=== PATIENT | female | born 1960 | race African-American/Black ===

== ENCOUNTER 2016-11-09 14:26 | Emergency (ER) | payer MEDICARE ==
[~2016-11-09] VITALS: Ht 157.5 cm; Wt 93.9 kg
[2016-11-09 14:38] VITALS: BP 145/67
[2016-11-09] MEDS ORDERED: HYDROMORPHONE 2 MG/ML VIAL. IM ONE (16:15)
[2016-11-09] MEDS ORDERED: MORP15TA PO (16:51)
[2016-11-09] MEDS ORDERED: ACET325T9 PO (16:51)
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
== END 2016-11-09 17:03 | disposition home or self-care (01) ==
LOC: ER 14:26
DX: M54.5 Low back pain (principal); E11.9 Type 2 diabetes mellitus without complications; V98.8XXA Other specified transport accidents, initial encounter; Y93.89 Activity, other specified; Y92.89 Other specified places as the place of occurrence of the external cause; Y99.8 Other external cause status
CPT/HCPCS: 72100; 96372; 99284; J1170

== ENCOUNTER 2020-04-20 00:26 | Emergency (ER) | payer MEDICARE, OTHER ==
[~2020-04-20] VITALS: Ht 157.5 cm; Wt 59.0 kg
[~2020-04-20 00:26] MED LIST: ACET325T9 PO; MORP15TA PO
[2020-04-20] MEDS ORDERED: AZIT250T PO (01:31)
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
[2020-04-20 01:45] VITALS: BP 176/77
== END 2020-04-20 01:55 | disposition home or self-care (01) ==
LOC: ER 00:26
DX: R05 Cough (principal); J00 Acute nasopharyngitis [common cold]; E11.9 Type 2 diabetes mellitus without complications; I10 Essential (primary) hypertension; Z87.891 Personal history of nicotine dependence
CPT/HCPCS: 99283

== ENCOUNTER 2020-06-23 02:09 | Emergency (ER) | payer MEDICARE ==
[~2020-06-23] VITALS: Ht 162.6 cm; Wt 80.0 kg
[~2020-06-23 02:09] MED LIST changes: +AZIT250T PO
--- NOTE | 2020-06-23 02:58 | PHYS DOC ---
Past Medical History Past Medical History: Diabetes-Type II, Hypertension (WENDY GONZALEZ DO) Past Surgical History: No Surgical History (WENDY GONZALEZ DO) Smoking Status: Former Smoker Alcohol Use: Occasionally Drug Use: None (WENDY GONZALEZ DO) General Adult EDM: Chief Complaint: FEVER HPI: HPI: History obtained from patient. Patient is a 59-year-old female with past medical history significant for insulin-dependent diabetes, hypertension who presents with chief complaint of fatigue. Patient states that she has felt more fatigued than usual over the past 24 hours. States she slept most of the day yesterday. States that she has been eating and drinking well. Denies any abdominal pain. Denies nausea or vomiting. Denies any cough. States that she did test positive for coronavirus several months ago. Denies any new medicines or recent antibiotics. Denies any chest pain or shortness of breath. Denies dysuria, hematuria, or polyuria. States that she just felt fatigued and wanted to be evaluated. Has not followed up with her primary care physician. Denies any tobacco, alcohol, or drug abuse. Denies any rashes. No other complaints. (WENDY GONZALEZ DO) Review of Systems: Review of Systems: Constitutional: Positive for fatigue and fever Eyes: Denies change in visual acuity. [] HENT: Denies nasal congestion or sore throat. [] Respiratory: Denies cough or shortness of breath. [] Cardiovascular: Denies chest pain or edema. [] GI: Denies abdominal pain, nausea, vomiting, bloody stools or diarrhea. [] : Denies dysuria. [] Musculoskeletal: Denies back pain or joint pain. [] Integument: Denies rash. [] Neurologic: Denies headache, focal weakness or sensory changes. [] Endocrine: Denies polyuria or polydipsia. [] Lymphatic: Denies swollen glands. [] Psychiatric: Denies depression or anxiety. [] (WENDY GONZALEZ DO) Heart Score: Risk Factors: Risk Factors: DM, Current or recent (<one month) smoker, HTN, HLP, family history of CAD, obesity. Risk Scores: Score 0 - 3: 2.5% MACE over next 6 weeks - Discharge Home Score 4 - 6: 20.3% MACE over next 6 weeks - Admit for Clinical Observation Score 7 - 10: 72.7% MACE over next 6 weeks - Early Invasive Strategies (WENDY GONZALEZ DO) Allergies: Allergies: Allergies Coded Allergies Type Severity Reaction Last Updated Verified No Known Drug Allergies 11/09/16 No (WENDY GONZALEZ DO) Physical Exam: PE: Constitutional: Well developed, well nourished, no acute distress, non-toxic appearance. [] HENT: Normocephalic, atraumatic, bilateral external ears normal, oropharynx moist, no oral exudates, nose normal. [] Eyes: PERRLA, EOMI, conjunctiva normal, no discharge. [] Neck: Normal range of motion, no tenderness, supple, no stridor. [] Cardiovascular:Heart rate regular rhythm, no murmur [] Lungs & Thorax: Bilateral breath sounds clear to auscultation [] Abdomen: Soft, nontender, nonacute abdomen. No involuntary guarding or rigidity noted. No acute peritonitis. Skin: Warm, dry, no erythema, no rash. [] Back: No tenderness, no CVA tenderness. [] Extremities: No tenderness, no cyanosis, no clubbing, ROM intact, no edema. [] Neurologic: Alert and oriented X 3, normal motor function, normal sensory function, no focal deficits noted. [] Psychologic: Affect normal, judgement normal, mood normal. [] (WENDY GONZALEZ DO) Current Patient Data: Labs: Laboratory Tests Test 06/23/20 02:45 06/23/20 04:45 06/23/20 06:00 Urine Collection Type Unknown Urine Color Yellow Urine Clarity Clear Urine pH 5.5 Urine Specific [place] 1.025 Urine Protein 30 mg/dL Urine Glucose (UA) Negative mg/dL Urine Ketones (Stick) Trace mg/dL Urine Blood Negative Urine Nitrite Positive Urine Bilirubin Negative Urine Urobilinogen Dipstick 0.2 mg/dL Urine Leukocyte Esterase Small Urine RBC Occ /HPF Urine WBC 5-10 /HPF Urine Squamous Epithelial Cells Many /LPF Urine Bacteria Many /HPF Urine Mucus Marked /LPF White Blood Count 9.7 x10^3/uL Red Blood Count 4.83 x10^6/uL Hemoglobin 13.7 g/dL Hematocrit 41.7 % Mean Corpuscular Volume 86 fL Mean Corpuscular Hemoglobin 28 pg Mean Corpuscular Hemoglobin Concent 33 g/dL Red Cell Distribution Width 14.6 % Platelet Count 180 x10^3/uL Neutrophils (%) (Auto) 79 % Lymphocytes (%) (Auto) 16 % Monocytes (%) (Auto) 4 % Eosinophils (%) (Auto) 0 % Basophils (%) (Auto) 1 % Neutrophils # (Auto) 7.6 x10^3/uL Lymphocytes # (Auto) 1.6 x10^3/uL Monocytes # (Auto) 0.4 x10^3/uL Eosinophils # (Auto) 0.0 x10^3/uL Basophils # (Auto) 0.1 x10^3/uL Lactic Acid Level 0.9 mmol/L Sodium Level 141 mmol/L Potassium Level 3.5 mmol/L Chloride Level 104 mmol/L Carbon Dioxide Level 25 mmol/L Anion Gap 12 Blood Urea Nitrogen 10 mg/dL Creatinine 0.7 mg/dL Estimated GFR (Cockcroft-Gault) 102.9 BUN/Creatinine Ratio 14 Glucose Level 140 mg/dL Calcium Level 8.6 mg/dL Total Bilirubin 0.3 mg/dL Aspartate Amino Transf (AST/SGOT) 18 U/L Alanine Aminotransferase (ALT/SGPT) 15 U/L Alkaline Phosphatase 78 U/L Total Protein 6.9 g/dL Albumin 3.3 g/dL Albumin/Globulin Ratio 0.9 Lipase 137 U/L Current Medications Medications (Trade) Dose Ordered Sig/[place] Route PRN Reason Start Time Stop Time Status Last Admin Dose Admin Acetaminophen (Tylenol) 1,000 mg 1X ONCE PO 06/23/20 03:15 06/23/20 03:16 DC 06/23/20 05:01 Cefazolin Sodium (Ancef) 1 gm 1X ONCE IVP 06/23/20 04:15 06/23/20 04:16 DC 06/23/20 06:43 Multi-Ingredient Mouthwash/Gargle (Gi Cocktail) 20 ml 1X ONCE SWSW 06/23/20 04:15 06/23/20 04:16 UNV Vital Signs: (TIM CRAFT DO) EKG: EKG: [] (WENDY GONZALEZ DO) Radiology/Procedures: Radiology/Procedures: [] (WENDY GONZALEZ DO) Radiology/Procedures: [facility] [address] [place] [address] IMAGING REPORT Signed PATIENT: YASMIN MAE ACCOUNT: [id number] : 1960 LOCATION: ER AGE: 59 SEX: F EXAM STATUS: REG ER ORD. PHYSICIAN: WENDY GONZALEZ DO REASON: fever PROCEDURE: CHEST AP ONLY Study: CR CHEST AP ONLY Indication: Fever. Comparison: None available. Findings: The cardiomediastinal silhouette and tim are within normal limits noting low lung volumes. Mild bibasilar volume loss. No confluent infiltrate or pneumothorax. The left costophrenic angle is faintly blunted but there is no large effusion. Impression: Low lung volumes with mild basilar volume loss. No localized airspace opacity to suggest an organizing pneumonia. Electronically signed by: MADAI GONZALEZ MD (06/23/2020 4:09 AM) [id number] DICTATED and SIGNED BY: MADAI GONZALEZ MD DATE: 06/23/20 0409 (TIM CRAFT DO) Course & Med Decision Making: Course & Med Decision Making Pertinent Labs and Imaging studies reviewed. (See chart for details) [] Patient is a 59-year-old female who presents with chief complaint of generalized fatigue and concern for fever. Vital signs notable for temperature of 101.3. On exam patient has no localizing symptoms. Abdomen is benign. Urinalysis is concerning for infection. She will be given IV Ancef. At this time laboratory analysis is pending. I have signed out the patient's emergency department care to Dr. Craft. We discussed the history, physical exam findings, completed and pending laboratory results and imaging studies. We have also discussed the current treatment plan and expected clinical course. Please refer to chart for the patient's remaining emergency department course, final disposition, and clinical impression(s). (WENDY GONZALEZ DO) Course & Med Decision Making Patient is a 59-year-old female who presented to ER for evaluation of body ache, fatigue. Patient was found to have a fever in the ER, chest x-ray did not show any acute consolidation. Patient had normal blood work, UA show evidence of urinary tract infection. Patient had no abdominal pain, no flank pain. Patient was given Tylenol, saline, Ancef in the ER. Patient felt much better. Patient will be discharged home with prescription for Levaquin 750 mg once a day for 7 days. Patient will need to follow-up with her family physician for reevaluation. Patient is amenable to plan of care. (TIM CRAFT DO) Chela Disclaimer: Chela Disclaimer: This electronic medical record was generated, in whole or in part, using a voice recognition dictation system. (WENDY GONZALEZ DO) Departure Departure Impression: Primary Impression: UTI (urinary tract infection) Qualified Codes: N39.0 - Urinary tract infection, site not specified Additional Impression: Person under investigation for COVID-19 Disposition: HOME SELF CARE/HOMELESS Condition: STABLE Referrals: NO PCP (PCP) PLEASE FOLLOW UP WITH YOUR FAMILY PHYSICIAN ON FRIDAY FOR REEVALUATION Patient Instructions: Urinary Tract Infection Additional Instructions: You have been tested for or diagnosed with COVID-19. It is an infection caused by a new type of coronavirus. COVID-19 will cause cold-like or mild flu symptoms in most. It can cause more severe symptoms like problems breathing in some. There is no treatment for COVID-19. The body will clear the infection over time. Self-care will help to ease discomfort. Steps to Take: Self-Care Rest as needed. Healthy habits may help you feel better. Steps include: Choose healthy foods including fruits and vegetables. Drink water throughout the day. Get plenty of sleep each night. If you smoke, try to quit. It may ease breathing. Avoid alcohol. Keep Others Healthy The virus can spread to others. Droplets are released every time you sneeze or cough. The droplets can get into the mouth, nose, or eyes of people near you and lead to infection. To lower the chances of spreading COVID-19 to others: Stay at home until your doctor has said it is safe to leave. If you tested positive this will mean staying isolated until both of the following are true: At least 7 days have passed since the start of illness. You are free of fever for at least 72 hours without the use of medicine. During this time: - Avoid public areas, events, or transportation. Do not return to work or school until your doctor has said it is safe to do so. - Call ahead if you need to go to a medical center. Let them know you may have COVID-19. It will help them guide you where to go. They may also ask you to wear a facemask when you come to the office. - If you call for emergency medical services, let them know you may have COVID- 19. While at home: - Try to avoid close contact with others. Stay about 6 feet away. - If possible, spend most of your time in a separate room from others. - Use a face mask if you will be in close contact with others such as sharing a room or vehicle. - Have someone wipe down common surfaces in the home. Use household nail setter every day on areas like doorknobs, counters, or sinks. - Cough or sneeze into a tissue. Throw the tissue away right after use. If a tissue is not available, cough or sneeze into your elbow. - Wash your hands often. Wash them after sneezing or coughing. Use soap and water and wash for at least 20 seconds. Alcohol based hand coil cleaner can be used if soap and water is not available. - Do not prepare food for others. Avoid sharing personal items like forks, spoons, or toothbrushes. - Avoid close contact with pets while you are sick. There is no evidence of the virus passing to pets. This is a safety step until more is known about this virus. Isolation can be frustrating. Social interaction can help. Keep in touch with friends and family through phone and tech options. You can still interact with others in your home, just keep a safe distance of about 6 feet. Follow-up: Your doctors office will check in with you to see if there are any changes in your health. You may be asked to keep track of symptoms to share with them. They will also let you know when you are clear to be in public again. Problems to Look Out For: Contact your doctor if your recovery is not going as you expect. Get emergency care if you have problems such as: - Trouble breathing - Nonstop chest pain or pressure - Changes in awareness, confusion, or problems waking - Lips or face have bluish color - Worsening of symptoms If you think you have an emergency, call for emergency medical services right away. [facility] [place] [facility] [place] [facility] Levofloxacin (LEVOFLOXACIN) 750 Mg Tablet 1 TAB PO DAILY, #7 TAB Prov: TIM CRAFT DO 06/23/20 WENDY GONZALEZ DO Jun 23, 2020 02:58 TIM CRAFT DO Jun 23, 2020 07:08
[2020-06-23] MEDS ORDERED: ACETAMINOPHEN 500 MG TABLET PO ONE (03:15)
[2020-06-23 03:54] LABS: BILIRUBIN,URINE NEGATIVE (NEG); CLARITY,URINE CLEAR; COLOR,URINE YELLOW; NITRITE,URINE POSITIVE (NEG); PH,URINE 5.5 (<5.0-8.0); PROTEIN,URINE 30 mg/dL (NEG-TRACE); UROBILINOGEN,URINE 0.2 mg/dL (0.2 mg/dL)
[2020-06-23 04:02] LABS: BACTERIA,URINE MANY /HPF (0-FEW); RBC,URINE OCC /HPF (0-2)
--- NOTE | 2020-06-23 04:12 | RAD ---
Study: CR CHEST AP ONLY Indication: Fever. Comparison: None available. Findings: The cardiomediastinal silhouette and tim are within normal limits noting low lung volumes. Mild bibasilar volume loss. No confluent infiltrate or pneumothorax. The left costophrenic angle is faintly blunted but there is no large effusion. Impression: Low lung volumes with mild basilar volume loss. No localized airspace opacity to suggest an organizing pneumonia. Electronically signed by: MADAI GONZALEZ MD (06/23/2020 4:09 AM) [id number]
[2020-06-23] MEDS ORDERED: LIDO:MAALOX 1:1 20 ML SINGLE DOSE. SWSW ONE (04:15)
[2020-06-23] MEDS ORDERED: ceFAZolin SODIUM IV Push 1 GM VIAL. IVP ONE (04:15)
[2020-06-23 05:00] LABS: BASO # 0.1 x10^3/uL (0.0-0.2); BASO % 1 % (0-3); EOS % 0 % (0-3); HEMATOCRIT 41.7 % (36.0-47.0); HEMOGLOBIN 13.7 g/dL (12.0-15.5); LYMPH # 1.6 x10^3/uL (1.0-4.8); LYMPH % 16 % (24-48); MEAN CORPUSCULAR HEMOGLOBIN 28 pg (25-35); MEAN CORPUSCULAR HGB CONC 33 g/dL (31-37); MEAN CORPUSCULAR VOLUME 86 fL (79-100); MONO # 0.4 x10^3/uL (0.0-1.1); MONO % 4 % (0-9); NEUT # 7.6 x10^3/uL (1.8-7.7); NEUT % 79 % (31-73); PLATELET COUNT 180 x10^3/uL (140-400); RED BLOOD COUNT 4.83 x10^6/uL (3.50-5.40); RED CELL DISTRIBUTION WIDTH 14.6 % (11.5-14.5); WHITE BLOOD COUNT 9.7 x10^3/uL (4.0-11.0)
[2020-06-23 06:30] LABS: CALCIUM 8.6 mg/dL (8.5-10.1); CREATININE 0.7 mg/dL (0.6-1.0); GFR 102.9; POTASSIUM 3.5 mmol/L (3.5-5.1)
[2020-06-23 06:35] LABS: ALBUMIN 3.3 g/dL (3.4-5.0); ALBUMIN/GLOBULIN RATIO 0.9 (1.0-1.7); TOTAL BILIRUBIN 0.3 mg/dL (0.2-1.0); TOTAL PROTEIN 6.9 g/dL (6.4-8.2)
[2020-06-23 07:38] VITALS: BP 107/57
[2020-06-23] MEDS ORDERED: LEVO750T5 PO (08:01)
--- NOTE | 2020-06-28 14:08 | NUR ---
IP: Daughter called for COVID results and concerns of mother's symptoms. In formed her of positive COVID test and need for her and family to quarantine for 14 days. If pt should get worse she can bring her back to the ED or talk with her PCP.
== END 2020-06-23 08:19 | disposition home or self-care (01) ==
LOC: ER 02:09
DX: U07.1 COVID-19 (principal); N39.0 Urinary tract infection, site not specified; E11.9 Type 2 diabetes mellitus without complications; I10 Essential (primary) hypertension; Z87.891 Personal history of nicotine dependence
CPT/HCPCS: 36415; 71045; 80053; 81001; 83605; 83690; 85025; 87040; 87077; 87086; 87186; 96374; 99284; C9803; J0690; U0003